=== PATIENT | male | born 1965 | race Two or more races ===

== ENCOUNTER 2017-12-04 16:01 | Emergency (ER) | payer MEDICAID ==
[~2017-12-04] VITALS: Ht 177.8 cm; Wt 90.7 kg
[~2017-12-04 16:01] MED LIST: HUMULIN N100 U/1 ML SC
[2017-12-04 16:17] VITALS: Ht 177.8 cm; Wt 90.7 kg
[2017-12-04 17:46] LABS: BASOPHIL % 0.3 % (0-2); PLATELET COUNT 174 x10^3mcL (130-400)
[2017-12-04 17:52] LABS: RED CELL DISTRIBUTION WIDTH 16.6 % (11.5-14.5)
[2017-12-04 18:04] LABS: BILIRUBIN TOTAL 0.3 mg/dL (0.20-1.00); CALCIUM 8.3 mg/dL (8.5-10.1); CARBON DIOXIDE 28.7 mmol/L (21-32); CREATININE SERUM 1.4 mg/dL (0.7-1.3); TOTAL PROTEIN, SERUM 7.3 g/dL (6.4-8.2)
[2017-12-04 18:05] LABS: ALBUMIN 2.7 g/dL (3.4-5.0)
[2017-12-04 18:06] LABS: POTASSIUM SERUM 2.8 mmol/L (3.5-5.1)
[2017-12-04 18:17] LABS: UA SPECIFIC GRAVITY >=1.030 (1.005-1.035); microscopic required? YES; urine erythrocyte 3+ (NEGATIVE)
[2017-12-04 21:40] VITALS: BP 122/71
== END 2017-12-04 21:41 | disposition home or self-care (01) ==
LOC: ED 16:01
PROVIDERS: Emergency Medicine
DX: S06.9X1A Unspecified intracranial injury with loss of consciousness of 30 minutes or less, initial encounter (principal); E16.2 Hypoglycemia, unspecified; E87.6 Hypokalemia; W05.0XXA Fall from non-moving wheelchair, initial encounter; Y93.89 Activity, other specified; Y92.89 Other specified places as the place of occurrence of the external cause; Y99.8 Other external cause status
CPT/HCPCS: 82962; J1956; J3480; J3490; J7040

== ENCOUNTER 2018-05-11 16:49 | Inpatient (IN) | payer OTHER ==
[~2018-05-11] VITALS: Ht 177.8 cm; Wt 90.1 kg
[2018-05-11 17:53] LABS: PLATELET COUNT 193 x10^3mcL (130-400)
[2018-05-11 17:57] LABS: RED CELL DISTRIBUTION WIDTH 17.3 % (11.5-14.5)
[2018-05-11 18:17] LABS: ALKALINE PHOSPHATASE 166 U/L (46-116); ALT/SGPT 29 U/L (16-63); AST/SGOT 21 U/L (15-37); BILIRUBIN TOTAL 0.5 mg/dL (0.20-1.00); CALCIUM 8.6 mg/dL (8.5-10.1); CARBON DIOXIDE 28.5 mmol/L (21-32); CHLORIDE SERUM 92 mmol/L (98-107); CREATININE SERUM 1.2 mg/dL (0.7-1.3); GFR1 > 60 mL/min; GLUCOSE SERUM 308 mg/dL (74-106); SODIUM SERUM 129 mmol/L (136-145); TOTAL PROTEIN, SERUM 8.2 g/dL (6.4-8.2)
[2018-05-11 18:38] LABS: ALBUMIN 1.9 g/dL (3.4-5.0); POTASSIUM SERUM 2.3 mmol/L (3.5-5.1)
[2018-05-11 18:40] LABS: BAND NEUTROPHIL 21 % (0-10); BASOPHIL 0 % (0-2); MONOCYTE 5 % (0-7); SEGMENTED NEUTROPHILS 66 % (37-75); rbc morphology (normal/abnorm) ABNORMAL (NORMAL)
[2018-05-11 18:41] LABS: PLATELET MORPHOLOGY PLATELETS NORMAL
[2018-05-11 19:11] LABS: UA SPECIFIC GRAVITY <=1.005 (1.005-1.035); microscopic required? YES; urine erythrocyte 1+ (NEGATIVE)
[2018-05-11] MEDS ORDERED: METFORMIN850 M1 PO (19:36)
[2018-05-11] MEDS ORDERED: NOVOLIN R100 U/ML (19:37)
[2018-05-11] MEDS ORDERED: HUMULIN R100 U/1 M1 (19:37)
[2018-05-11] MEDS ORDERED: HUMULIN N100 U/1 ML (19:37)
[2018-05-11 19:46] LABS: AMPHETAMINE QUAL UR NONE DETECTED (See below)
[2018-05-11 19:47] LABS: CHOLESTEROL 159 mg/dL (<200); LIPASE 81 IU/L (73-393); MAGNESIUM 2.3 mg/dL (1.8-2.4); PHOSPHOROUS 2.3 mg/dL (2.5-4.9)
[2018-05-11 19:49] LABS: AMYLASE 15 U/L (25-115); CHOLESTEROL/HDL RATIO 15.9; HDL CHOLESTEROL 10 mg/dL (40-60); TRIGLYCERIDES 542 mg/dL (<150)
[2018-05-11 19:53] LABS: T3 TOTAL 0.81 ng/mL
[2018-05-11 20:11] LABS: FREE T4 1.45 ng/dL (0.76-1.46); FREE THYROXINE INDEX 2.4 ug/dL (1.4-4.5); T4(THYROXINE) 6.7 ug/dL (4.7-13.3)
[2018-05-11 21:55] VITALS: BP 107/59
[2018-05-11 23:00] VITALS: BP 107/59
[2018-05-12 02:00] VITALS: BP 90/54
[2018-05-12 06:35] VITALS: BP 102/57
[2018-05-12 07:23] LABS: PLATELET COUNT 174 x10^3mcL (130-400)
[2018-05-12 07:51] LABS: RED CELL DISTRIBUTION WIDTH 17.4 % (11.5-14.5)
[2018-05-12 08:04] LABS: CALCIUM 7.9 mg/dL (8.5-10.1); CARBON DIOXIDE 28.8 mmol/L (21-32); CHLORIDE SERUM 99 mmol/L (98-107); GFR1 > 60 mL/min; GLUCOSE SERUM 160 mg/dL (74-106); SODIUM SERUM 135 mmol/L (136-145)
[2018-05-12 08:16] LABS: POTASSIUM SERUM 2.4 mmol/L (3.5-5.1)
[2018-05-12 09:22] VITALS: BP 105/53
[2018-05-12 11:30] LABS: BAND NEUTROPHIL 19 % (0-10); BASOPHIL 0 % (0-2); MONOCYTE 7 % (0-7); SEGMENTED NEUTROPHILS 64 % (37-75)
[2018-05-12 11:32] LABS: rbc morphology (normal/abnorm) ABNORMAL (NORMAL)
[2018-05-12 13:26] VITALS: BP 104/53
[2018-05-12 17:20] VITALS: BP 117/57
[2018-05-12 21:06] VITALS: BP 100/56
[2018-05-13 05:55] VITALS: BP 107/63
[2018-05-13 07:45] LABS: PLATELET COUNT 195 x10^3mcL (130-400)
[2018-05-13 07:57] LABS: RED CELL DISTRIBUTION WIDTH 17.5 % (11.5-14.5)
[2018-05-13 08:11] LABS: CHLORIDE SERUM 100 mmol/L (98-107); POTASSIUM SERUM 3.1 mmol/L (3.5-5.1); SODIUM SERUM 135 mmol/L (136-145)
[2018-05-13 08:23] LABS: CALCIUM 7.5 mg/dL (8.5-10.1); CARBON DIOXIDE 25.1 mmol/L (21-32); CREATININE SERUM 1.1 mg/dL (0.7-1.3); GFR1 > 60 mL/min; GLUCOSE SERUM 162 mg/dL (74-106); MAGNESIUM 1.6 mg/dL (1.8-2.4); PHOSPHOROUS 2.6 mg/dL (2.5-4.9)
[2018-05-13 10:00] VITALS: BP 103/55
[2018-05-13 11:53] LABS: BAND NEUTROPHIL 1 % (0-10); BASOPHIL 0 % (0-2); MONOCYTE 3 % (0-7); SEGMENTED NEUTROPHILS 91 % (37-75)
[2018-05-13 11:54] LABS: PLATELET MORPHOLOGY PLATELETS DECREASED; rbc morphology (normal/abnorm) ABNORMAL (NORMAL)
[2018-05-13 13:30] VITALS: BP 106/58
[2018-05-13 17:32] VITALS: BP 107/76
[2018-05-13 21:09] VITALS: BP 116/63
[2018-05-14 05:39] VITALS: BP 108/64
[2018-05-14 05:53] LABS: BASOPHIL % 0.1 % (0-2); PLATELET COUNT 229 x10^3mcL (130-400)
[2018-05-14 06:30] LABS: CALCIUM 7.6 mg/dL (8.5-10.1); CARBON DIOXIDE 23.8 mmol/L (21-32); CHLORIDE SERUM 99 mmol/L (98-107); CREATININE SERUM 1.1 mg/dL (0.7-1.3); GFR1 > 60 mL/min; GLUCOSE SERUM 157 mg/dL (74-106); MAGNESIUM 1.5 mg/dL (1.8-2.4); PHOSPHOROUS 2.6 mg/dL (2.5-4.9); POTASSIUM SERUM 3.3 mmol/L (3.5-5.1); SODIUM SERUM 132 mmol/L (136-145)
[2018-05-14 07:16] LABS: RED CELL DISTRIBUTION WIDTH 17.2 % (11.5-14.5)
[2018-05-14 08:23] VITALS: Ht 177.8 cm; Wt 90.1 kg
[2018-05-14 09:08] VITALS: BP 98/57
[2018-05-14 13:07] VITALS: BP 95/65
[2018-05-14 17:15] VITALS: BP 106/62
[2018-05-14 20:00] VITALS: BP 112/67
[2018-05-15] VITALS (12 sets, daily range): BP systolic 98–144; BP diastolic 57–99
[2018-05-15 06:37] LABS: BASOPHIL % 0.2 % (0-2); PLATELET COUNT 246 x10^3mcL (130-400)
[2018-05-15 06:47] LABS: RED CELL DISTRIBUTION WIDTH 17.1 % (11.5-14.5)
[2018-05-15 07:12] LABS: CALCIUM 7.4 mg/dL (8.5-10.1); CARBON DIOXIDE 24.5 mmol/L (21-32); CHLORIDE SERUM 103 mmol/L (98-107); GFR1 > 60 mL/min; GLUCOSE SERUM 217 mg/dL (74-106); MAGNESIUM 1.6 mg/dL (1.8-2.4); PHOSPHOROUS 2.2 mg/dL (2.5-4.9); SODIUM SERUM 135 mmol/L (136-145)
[2018-05-16 05:10] VITALS: BP 111/62
[2018-05-16 06:19] LABS: BASOPHIL % 0.3 % (0-2); PLATELET COUNT 289 x10^3mcL (130-400)
[2018-05-16 06:34] LABS: RED CELL DISTRIBUTION WIDTH 17.5 % (11.5-14.5)
[2018-05-16 06:53] LABS: CALCIUM 7.8 mg/dL (8.5-10.1); CHLORIDE SERUM 101 mmol/L (98-107); GFR1 > 60 mL/min; GLUCOSE SERUM 175 mg/dL (74-106); MAGNESIUM 1.7 mg/dL (1.8-2.4); PHOSPHOROUS 3.1 mg/dL (2.5-4.9); POTASSIUM SERUM 4.3 mmol/L (3.5-5.1); SODIUM SERUM 130 mmol/L (136-145)
[2018-05-16 09:44] VITALS: BP 155/75
[2018-05-16 14:30] VITALS: BP 106/56
[2018-05-16 17:19] VITALS: BP 127/66
[2018-05-16 21:07] VITALS: BP 110/63
[2018-05-17 05:41] VITALS: BP 110/63; BP 118/66
[2018-05-17 06:49] LABS: BASOPHIL % 0.4 % (0-2); PLATELET COUNT 289 x10^3mcL (130-400)
[2018-05-17 06:51] LABS: RED CELL DISTRIBUTION WIDTH 17.2 % (11.5-14.5)
[2018-05-17 06:57] LABS: CALCIUM 7.8 mg/dL (8.5-10.1); CARBON DIOXIDE 25.2 mmol/L (21-32); CHLORIDE SERUM 100 mmol/L (98-107); GFR1 > 60 mL/min; GLUCOSE SERUM 206 mg/dL (74-106); POTASSIUM SERUM 4.3 mmol/L (3.5-5.1); SODIUM SERUM 132 mmol/L (136-145)
[2018-05-17 10:21] VITALS: BP 90/54
[2018-05-17 14:01] VITALS: BP 136/81
[2018-05-17 17:48] VITALS: BP 128/68
[2018-05-17 20:55] VITALS: BP 100/55
[2018-05-18 05:14] VITALS: BP 111/67
[2018-05-18 07:10] LABS: CALCIUM 7.8 mg/dL (8.5-10.1); CARBON DIOXIDE 26.1 mmol/L (21-32); CHLORIDE SERUM 102 mmol/L (98-107); CREATININE SERUM 1.1 mg/dL (0.7-1.3); GFR1 > 60 mL/min; GLUCOSE SERUM 204 mg/dL (74-106); POTASSIUM SERUM 4.6 mmol/L (3.5-5.1); SODIUM SERUM 135 mmol/L (136-145)
[2018-05-18 07:42] LABS: BASOPHIL % 0.3 % (0-2); PLATELET COUNT 331 x10^3mcL (130-400)
[2018-05-18 07:55] LABS: RED CELL DISTRIBUTION WIDTH 17.6 % (11.5-14.5)
[2018-05-18 08:37] VITALS: BP 112/62
[2018-05-18 16:24] VITALS: BP 93/44
[2018-05-18 20:30] VITALS: BP 117/63
[2018-05-19 05:39] VITALS: BP 114/65
[2018-05-19 06:32] LABS: BASOPHIL % 0.4 % (0-2); PLATELET COUNT 339 x10^3mcL (130-400)
[2018-05-19 07:01] LABS: CALCIUM 8.1 mg/dL (8.5-10.1); CARBON DIOXIDE 27.1 mmol/L (21-32); CHLORIDE SERUM 101 mmol/L (98-107); CREATININE SERUM 1.1 mg/dL (0.7-1.3); GFR1 > 60 mL/min; GLUCOSE SERUM 241 mg/dL (74-106); POTASSIUM SERUM 4.1 mmol/L (3.5-5.1); SODIUM SERUM 132 mmol/L (136-145)
[2018-05-19 07:25] LABS: RED CELL DISTRIBUTION WIDTH 17.6 % (11.5-14.5)
[2018-05-19 09:23] VITALS: BP 115/70
[2018-05-19 12:53] VITALS: BP 104/66
[2018-05-19 16:24] VITALS: BP 134/71
[2018-05-19 20:35] VITALS: BP 100/55
[2018-05-20 06:06] VITALS: BP 121/64
[2018-05-20 06:26] LABS: BASOPHIL % 0.4 % (0-2); PLATELET COUNT 387 x10^3mcL (130-400)
[2018-05-20 06:57] LABS: CALCIUM 8.4 mg/dL (8.5-10.1); CHLORIDE SERUM 102 mmol/L (98-107); CREATININE SERUM 1.1 mg/dL (0.7-1.3); GFR1 > 60 mL/min; GLUCOSE SERUM 216 mg/dL (74-106); POTASSIUM SERUM 4.5 mmol/L (3.5-5.1); SODIUM SERUM 134 mmol/L (136-145)
[2018-05-20 08:20] VITALS: BP 100/76
[2018-05-20 12:49] VITALS: BP 119/76
[2018-05-20 16:32] VITALS: BP 127/78
[2018-05-20 21:07] VITALS: BP 137/73
[2018-05-21 05:18] VITALS: BP 121/68
[2018-05-21 08:56] VITALS: BP 112/57
[2018-05-21 13:07] VITALS: BP 91/59
[2018-05-21 17:21] VITALS: BP 119/72
[2018-05-21 21:55] VITALS: BP 114/68
[2018-05-22 05:32] VITALS: BP 131/69
[2018-05-22 06:07] LABS: BASOPHIL % 0.5 % (0-2); PLATELET COUNT 366 x10^3mcL (130-400)
[2018-05-22 06:20] LABS: CALCIUM 8.5 mg/dL (8.5-10.1); CARBON DIOXIDE 26.2 mmol/L (21-32); CHLORIDE SERUM 103 mmol/L (98-107); CREATININE SERUM 1.2 mg/dL (0.7-1.3); GFR1 > 60 mL/min; GLUCOSE SERUM 174 mg/dL (74-106); MAGNESIUM 1.8 mg/dL (1.8-2.4); PHOSPHOROUS 3.3 mg/dL (2.5-4.9); POTASSIUM SERUM 3.8 mmol/L (3.5-5.1); SODIUM SERUM 137 mmol/L (136-145)
[2018-05-22 06:52] LABS: RED CELL DISTRIBUTION WIDTH 17.7 % (11.5-14.5)
[2018-05-22 09:31] VITALS: BP 112/62
[2018-05-22 12:49] VITALS: BP 106/61
[2018-05-22 17:38] VITALS: BP 94/58
[2018-05-22 21:00] VITALS: BP 119/71
[2018-05-23 05:54] VITALS: BP 136/67
[2018-05-23 07:16] LABS: CARBON DIOXIDE 26.7 mmol/L (21-32); CHLORIDE SERUM 101 mmol/L (98-107); CREATININE SERUM 1.2 mg/dL (0.7-1.3); GFR1 > 60 mL/min; GLUCOSE SERUM 236 mg/dL (74-106); MAGNESIUM 1.8 mg/dL (1.8-2.4); PHOSPHOROUS 3.7 mg/dL (2.5-4.9); POTASSIUM SERUM 4.1 mmol/L (3.5-5.1); SODIUM SERUM 135 mmol/L (136-145)
[2018-05-23 07:49] LABS: BASOPHIL % 0.2 % (0-2); PLATELET COUNT 391 x10^3mcL (130-400)
[2018-05-23 07:52] LABS: RED CELL DISTRIBUTION WIDTH 16.5 % (11.5-14.5)
[2018-05-23 10:23] VITALS: BP 113/63
[2018-05-23 13:21] VITALS: BP 110/59
[2018-05-23 16:30] VITALS: BP 114/67
[2018-05-23 21:53] VITALS: BP 128/76
[2018-05-24 05:23] VITALS: BP 121/69
[2018-05-24 06:10] LABS: CALCIUM 8.5 mg/dL (8.5-10.1); CARBON DIOXIDE 26.8 mmol/L (21-32); CHLORIDE SERUM 101 mmol/L (98-107); CREATININE SERUM 1.1 mg/dL (0.7-1.3); GFR1 > 60 mL/min; GLUCOSE SERUM 184 mg/dL (74-106); SODIUM SERUM 134 mmol/L (136-145)
[2018-05-24 06:44] LABS: BASOPHIL % 0.5 % (0-2); PLATELET COUNT 367 x10^3mcL (130-400); RED CELL DISTRIBUTION WIDTH 17.2 % (11.5-14.5)
[2018-05-24 10:12] VITALS: BP 117/66
[2018-05-24 13:37] VITALS: BP 119/72
[2018-05-24 16:13] VITALS: BP 139/75
[2018-05-24 21:17] VITALS: BP 117/70
[2018-05-25 06:33] VITALS: BP 114/71
[2018-05-25 07:12] LABS: BASOPHIL % 0.8 % (0-2); PLATELET COUNT 372 x10^3mcL (130-400)
[2018-05-25 07:23] LABS: RED CELL DISTRIBUTION WIDTH 17.4 % (11.5-14.5)
[2018-05-25 07:24] LABS: CALCIUM 8.9 mg/dL (8.5-10.1); CARBON DIOXIDE 23.3 mmol/L (21-32); CHLORIDE SERUM 102 mmol/L (98-107); CREATININE SERUM 1.1 mg/dL (0.7-1.3); GFR1 > 60 mL/min; GLUCOSE SERUM 247 mg/dL (74-106); POTASSIUM SERUM 3.9 mmol/L (3.5-5.1); SODIUM SERUM 134 mmol/L (136-145)
[2018-05-25 09:17] VITALS: BP 96/55
[2018-05-25] MEDS ORDERED: LOVENOX100 MG/M1 IJ (14:34)
[2018-05-25] MEDS ORDERED: ZOS3PM IV (14:35)
[2018-05-25] MEDS ORDERED: ABILIFY5 M1 PO (14:35)
[2018-05-25] MEDS ORDERED: LIPI10 PO (14:36)
[2018-05-25] MEDS ORDERED: GOOD SENSE ASPI81 M3 PO (14:36)
[2018-05-25] MEDS ORDERED: VANCOMYCIN HCL N1 GM IV (14:40)
[2018-05-25 14:43] VITALS: BP 96/55
== END 2018-05-25 16:45 | DRG 710 ==
LOC: ED 16:49 → DU 19:23 → MU 05-24 14:27
PROVIDERS: Emergency Medicine; General Practice; Internal Medicine; Surgery
PROC: 0JBR0ZZ Excision of Left Foot Subcutaneous Tissue and Fascia, Open Approach (ICD-10-PCS; principal; 2018-05-12)
PROC: B41G1ZZ Fluoroscopy of Left Lower Extremity Arteries using Low Osmolar Contrast (ICD-10-PCS; 2018-05-15)
PROC: B4101ZZ Fluoroscopy of Abdominal Aorta using Low Osmolar Contrast (ICD-10-PCS; 2018-05-15 13:00)
PROC: 0QBM0ZZ Excision of Left Tarsal, Open Approach (ICD-10-PCS; 2018-05-18)
DX: A41.9 Sepsis, unspecified organism (principal); N17.0 Acute kidney failure with tubular necrosis; G93.41 Metabolic encephalopathy; E43 Unspecified severe protein-calorie malnutrition; A48.0 Gas gangrene; E83.39 Other disorders of phosphorus metabolism; L03.116 Cellulitis of left lower limb; E11.42 Type 2 diabetes mellitus with diabetic polyneuropathy; E11.52 Type 2 diabetes mellitus with diabetic peripheral angiopathy with gangrene; I82.412 Acute embolism and thrombosis of left femoral vein; E11.621 Type 2 diabetes mellitus with foot ulcer; F17.210 Nicotine dependence, cigarettes, uncomplicated; E11.65 Type 2 diabetes mellitus with hyperglycemia; E87.1 Hypo-osmolality and hyponatremia; E87.6 Hypokalemia; L97.421 Non-pressure chronic ulcer of left heel and midfoot limited to breakdown of skin; Z60.2 Problems related to living alone; E78.5 Hyperlipidemia, unspecified; N39.0 Urinary tract infection, site not specified; E11.610 Type 2 diabetes mellitus with diabetic neuropathic arthropathy; M76.62 Achilles tendinitis, left leg; D63.8 Anemia in other chronic diseases classified elsewhere; B96.20 Unspecified Escherichia coli [E. coli] as the cause of diseases classified elsewhere; B95.2 Enterococcus as the cause of diseases classified elsewhere; B96.4 Proteus (mirabilis) (morganii) as the cause of diseases classified elsewhere; Z89.422 Acquired absence of other left toe(s); Z68.25 Body mass index [BMI] 25.0-25.9, adult; Z89.511 Acquired absence of right leg below knee; Z79.84 Long term (current) use of oral hypoglycemic drugs; Z72.89 Other problems related to lifestyle; Z56.0 Unemployment, unspecified; Z86.73 Personal history of transient ischemic attack (TIA), and cerebral infarction without residual deficits; Z79.01 Long term (current) use of anticoagulants; Z59.0 Homelessness
CPT/HCPCS: 82962; 83880; 84439; 97110-GP; 97112-GP; 97116-GP; 97530-GP; A9577; A9579; C1760; C1769; C1887; C1894; J1200; J1650; J1815; J1956; J2001; J2250; J2310; J2543; J3010; J3370; J3475; J3480; J3490; J7030; J7050; Q0092; Q9967

== ENCOUNTER 2018-08-01 13:31 | Inpatient (IN) | payer OTHER ==
[~2018-08-01] VITALS: Ht 177.8 cm; Wt 86.0 kg
[~2018-08-01 13:31] MED LIST changes: +ABILIFY5 M1 PO; +GOOD SENSE ASPI81 M3 PO; +HUMULIN N100 U/1 ML; +HUMULIN R100 U/1 M1; +LIPI10 PO; +LOVENOX100 MG/M1 IJ; +METFORMIN850 M1 PO; +NOVOLIN R100 U/ML; +VANCOMYCIN HCL N1 GM IV; +ZOS3PM IV
[2018-08-01 14:26] LABS: CALCIUM 9.1 mg/dL (8.5-10.1); CARBON DIOXIDE 23.2 mmol/L (21-32); CHLORIDE SERUM 99 mmol/L (98-107); CREATININE SERUM 1.3 mg/dL (0.7-1.3); GFR1 > 60 mL/min; GLUCOSE SERUM 304 mg/dL (74-106); SODIUM SERUM 133 mmol/L (136-145)
[2018-08-01 14:27] LABS: BASOPHIL % 0.3 % (0-2); PLATELET COUNT 510 x10^3mcL (130-400); RED CELL DISTRIBUTION WIDTH 16.7 % (11.5-14.5)
[2018-08-01 14:33] LABS: ALKALINE PHOSPHATASE 123 U/L (46-116); ALT/SGPT 45 U/L (16-63); AST/SGOT 30 U/L (15-37); BILIRUBIN TOTAL 0.1 mg/dL (0.20-1.00)
[2018-08-01 14:36] LABS: ALBUMIN 2.3 g/dL (3.4-5.0); TOTAL PROTEIN, SERUM 9.5 g/dL (6.4-8.2)
[2018-08-01] MEDS ORDERED: MULTI-VITAMINS1 TAB PO (16:12)
[2018-08-01] MEDS ORDERED: NORCO1 TA2 PO (16:12)
[2018-08-01] MEDS ORDERED: KLOR-CON M2020 MEQ PO (16:13)
[2018-08-01] MEDS ORDERED: [UNRECOGNIZED DRUG - CODE] (16:13)
[2018-08-01 17:38] VITALS: BP 122/74
[2018-08-01 17:51] VITALS: Ht 177.8 cm; Wt 86.0 kg
[2018-08-01 17:53] LABS: MAGNESIUM 1.5 mg/dL (1.8-2.4); PHOSPHOROUS 4.2 mg/dL (2.5-4.9)
[2018-08-01 17:54] LABS: CHOLESTEROL/HDL RATIO 6.9
[2018-08-01 18:16] LABS: FREE T4 1.02 ng/dL (0.76-1.46); T4(THYROXINE) 5.2 ug/dL (4.7-13.3)
[2018-08-01 18:47] LABS: T3 TOTAL 0.65 ng/mL
[2018-08-01 19:30] LABS: IRON 15 ug/dL (65-170); TOTAL IRON BINDING CAPACITY 190 ug/dL (250-450)
[2018-08-01 21:04] VITALS: BP 127/71
[2018-08-02 06:00] VITALS: BP 149/89
[2018-08-02 07:04] LABS: CALCIUM 8.3 mg/dL (8.5-10.1); CARBON DIOXIDE 23.7 mmol/L (21-32); CHLORIDE SERUM 102 mmol/L (98-107); GFR1 > 60 mL/min; GLUCOSE SERUM 132 mg/dL (74-106); POTASSIUM SERUM 3.8 mmol/L (3.5-5.1); SODIUM SERUM 135 mmol/L (136-145)
[2018-08-02 07:34] LABS: BASOPHIL % 0.2 % (0-2); PLATELET COUNT 490 x10^3mcL (130-400); RED CELL DISTRIBUTION WIDTH 15.7 % (11.5-14.5)
[2018-08-02 08:23] VITALS: BP 109/60
[2018-08-02 08:25] LABS: UA SPECIFIC GRAVITY 1.025 (1.005-1.035); microscopic required? YES; urine erythrocyte NEGATIVE (NEGATIVE)
[2018-08-02 08:46] LABS: AMPHETAMINE QUAL UR NONE DETECTED (See below)
[2018-08-02 12:05] VITALS: BP 101/68
[2018-08-02 18:16] VITALS: BP 97/77
[2018-08-02 21:05] VITALS: BP 145/92
[2018-08-03 05:56] LABS: BASOPHIL % 0.3 % (0-2)
[2018-08-03 06:07] VITALS: BP 139/63
[2018-08-03 06:25] LABS: PLATELET COUNT 420 x10^3mcL (130-400); RED CELL DISTRIBUTION WIDTH 16.4 % (11.5-14.5)
[2018-08-03 06:27] LABS: CALCIUM 8.7 mg/dL (8.5-10.1); CARBON DIOXIDE 24.9 mmol/L (21-32); CHLORIDE SERUM 106 mmol/L (98-107); CREATININE SERUM 0.9 mg/dL (0.7-1.3); GFR1 > 60 mL/min; GLUCOSE SERUM 108 mg/dL (74-106); SODIUM SERUM 138 mmol/L (136-145)
[2018-08-03 08:16] VITALS: BP 95/65
[2018-08-03 11:48] VITALS: BP 136/72
[2018-08-03 16:23] VITALS: BP 94/59
[2018-08-03 20:58] VITALS: BP 109/63
[2018-08-04 05:46] VITALS: BP 115/64
[2018-08-04 08:06] LABS: BASOPHIL % 0.4 % (0-2)
[2018-08-04 08:07] LABS: PLATELET COUNT 437 x10^3mcL (130-400); RED CELL DISTRIBUTION WIDTH 17.3 % (11.5-14.5)
[2018-08-04 08:08] LABS: CALCIUM 8.1 mg/dL (8.5-10.1); CARBON DIOXIDE 23.1 mmol/L (21-32); CHLORIDE SERUM 106 mmol/L (98-107); CREATININE SERUM 0.9 mg/dL (0.7-1.3); GFR1 > 60 mL/min; GLUCOSE SERUM 206 mg/dL (74-106); MAGNESIUM 1.7 mg/dL (1.8-2.4); POTASSIUM SERUM 4.2 mmol/L (3.5-5.1); SODIUM SERUM 138 mmol/L (136-145)
[2018-08-04 09:04] VITALS: BP 94/54
[2018-08-04 13:48] VITALS: BP 130/71
[2018-08-04 17:00] VITALS: BP 114/80
[2018-08-04 21:04] VITALS: BP 114/74
[2018-08-05 05:33] VITALS: BP 133/61
[2018-08-05 07:41] LABS: CALCIUM 8.9 mg/dL (8.5-10.1); CARBON DIOXIDE 29.3 mmol/L (21-32); CHLORIDE SERUM 104 mmol/L (98-107); GFR1 > 60 mL/min; GLUCOSE SERUM 180 mg/dL (74-106); POTASSIUM SERUM 3.4 mmol/L (3.5-5.1); SODIUM SERUM 139 mmol/L (136-145)
[2018-08-05 07:44] LABS: BASOPHIL % 0.3 % (0-2); PLATELET COUNT 477 x10^3mcL (130-400); RED CELL DISTRIBUTION WIDTH 17.1 % (11.5-14.5)
[2018-08-05 08:51] VITALS: BP 119/65
[2018-08-05 13:05] VITALS: BP 114/69
[2018-08-05 17:03] VITALS: BP 129/65
[2018-08-05 20:51] VITALS: BP 125/74
[2018-08-06 05:25] VITALS: BP 118/67
[2018-08-06 06:34] LABS: CALCIUM 8.7 mg/dL (8.5-10.1); CARBON DIOXIDE 29.5 mmol/L (21-32); CHLORIDE SERUM 103 mmol/L (98-107); CREATININE SERUM 0.9 mg/dL (0.7-1.3); GFR1 > 60 mL/min; GLUCOSE SERUM 190 mg/dL (74-106); SODIUM SERUM 139 mmol/L (136-145)
[2018-08-06 06:56] LABS: BASOPHIL % 0.2 % (0-2); PLATELET COUNT 424 x10^3mcL (130-400); RED CELL DISTRIBUTION WIDTH 16.7 % (11.5-14.5)
[2018-08-06 08:40] VITALS: BP 114/69
[2018-08-06 14:05] VITALS: BP 95/59
[2018-08-06 15:28] VITALS: BP 94/60
[2018-08-06 17:00] VITALS: BP 115/49
[2018-08-06 21:39] VITALS: BP 90/55
[2018-08-07 01:04] VITALS: BP 98/58
[2018-08-07 06:42] LABS: BASOPHIL % 0.4 % (0-2); PLATELET COUNT 357 x10^3mcL (130-400)
[2018-08-07 06:44] VITALS: BP 96/58
[2018-08-07 07:07] LABS: ALKALINE PHOSPHATASE 69 U/L (46-116); ALT/SGPT 21 U/L (16-63); AST/SGOT 13 U/L (15-37); BILIRUBIN TOTAL 0.17 mg/dL (0.20-1.00); CALCIUM 8.6 mg/dL (8.5-10.1); CARBON DIOXIDE 26.7 mmol/L (21-32); CHLORIDE SERUM 105 mmol/L (98-107); GFR1 > 60 mL/min; GLUCOSE SERUM 243 mg/dL (74-106); MAGNESIUM 1.9 mg/dL (1.8-2.4); POTASSIUM SERUM 3.8 mmol/L (3.5-5.1); SODIUM SERUM 138 mmol/L (136-145); TOTAL PROTEIN, SERUM 7.3 g/dL (6.4-8.2)
[2018-08-07 08:01] LABS: RED CELL DISTRIBUTION WIDTH 16.8 % (11.5-14.5)
[2018-08-07 09:22] VITALS: BP 93/50
[2018-08-07 10:57] LABS: PLATELET COUNT 304 x10^3mcL (130-400)
[2018-08-07 11:10] LABS: RED CELL DISTRIBUTION WIDTH 17.6 % (11.5-14.5)
[2018-08-07 11:15] LABS: rbc morphology (normal/abnorm) NORMAL (NORMAL)
[2018-08-07 12:40] VITALS: BP 111/60
[2018-08-07 12:51] LABS: BAND NEUTROPHIL 0 % (0-10); BASOPHIL 0 % (0-2); MONOCYTE 8 % (0-7); SEGMENTED NEUTROPHILS 76 % (37-75)
[2018-08-07 12:52] LABS: PLATELET MORPHOLOGY N; rbc morphology (normal/abnorm) ABNORMAL (NORMAL)
[2018-08-07 17:03] VITALS: BP 123/69
[2018-08-07 21:18] VITALS: BP 111/61
[2018-08-08 05:43] VITALS: BP 102/59
[2018-08-08 07:04] LABS: BASOPHIL % 0.4 % (0-2); PLATELET COUNT 303 x10^3mcL (130-400)
[2018-08-08 07:15] LABS: CALCIUM 8.1 mg/dL (8.5-10.1); CARBON DIOXIDE 28.2 mmol/L (21-32); CHLORIDE SERUM 105 mmol/L (98-107); GFR1 > 60 mL/min; GLUCOSE SERUM 153 mg/dL (74-106); POTASSIUM SERUM 3.8 mmol/L (3.5-5.1); SODIUM SERUM 140 mmol/L (136-145)
[2018-08-08 08:09] LABS: RED CELL DISTRIBUTION WIDTH 17.8 % (11.5-14.5)
[2018-08-08 09:59] VITALS: BP 98/47
[2018-08-08] MEDS ORDERED: AMERINET CHOICE1 PD3 IV (10:21)
[2018-08-08] MEDS ORDERED: [UNRECOGNIZED DRUG - CODE] IV (10:21)
[2018-08-08 12:11] LABS: rbc morphology (normal/abnorm) ABNORMAL (NORMAL)
[2018-08-08 12:55] VITALS: BP 118/49
[2018-08-08 13:39] VITALS: BP 110/45; BP 118/49
[2018-08-08 17:24] VITALS: BP 117/57
[2018-08-08 21:15] VITALS: BP 110/61
[2018-08-09 05:39] VITALS: BP 120/62
[2018-08-09] MEDS ORDERED: FERROUS SULFAT325 M2 PO (09:44)
[2018-08-09] MEDS ORDERED: VITAMIN-D1000 IU PO (09:44)
[2018-08-09 09:46] VITALS: BP 94/59
[2018-08-09 13:04] VITALS: BP 110/45
[2018-08-09 18:30] VITALS: BP 104/62
[2018-08-09 21:01] VITALS: BP 111/66
[2018-08-10 05:27] VITALS: BP 110/66
[2018-08-10 08:42] VITALS: BP 118/58
[2018-08-10 12:24] VITALS: BP 108/65
[2018-08-10 15:15] LABS: BASOPHIL % 0.4 % (0-2); PLATELET COUNT 303 x10^3mcL (130-400)
[2018-08-10 16:07] LABS: rbc morphology (normal/abnorm) ABNORMAL (NORMAL)
[2018-08-10 16:09] LABS: ovalocyte/elliptocyte 1+; tear drop cell (dacryocyte) 1+
[2018-08-10 16:15] VITALS: BP 117/62
[2018-08-10 21:35] VITALS: BP 135/63
[2018-08-11 06:09] VITALS: BP 111/65
[2018-08-11 07:34] LABS: BASOPHIL % 0.6 % (0-2); PLATELET COUNT 280 x10^3mcL (130-400)
[2018-08-11 07:53] LABS: RED CELL DISTRIBUTION WIDTH 17.9 % (11.5-14.5)
[2018-08-11 07:59] LABS: CALCIUM 9.1 mg/dL (8.5-10.1); CARBON DIOXIDE 29.4 mmol/L (21-32); CHLORIDE SERUM 105 mmol/L (98-107); GFR1 > 60 mL/min; GLUCOSE SERUM 180 mg/dL (74-106); MAGNESIUM 2.2 mg/dL (1.8-2.4); PHOSPHOROUS 3.1 mg/dL (2.5-4.9); POTASSIUM SERUM 4.4 mmol/L (3.5-5.1); SODIUM SERUM 140 mmol/L (136-145)
[2018-08-11 08:05] VITALS: BP 100/62
[2018-08-11 12:19] VITALS: BP 106/58
[2018-08-11 14:31] LABS: rbc morphology (normal/abnorm) ABNORMAL (NORMAL)
[2018-08-11 16:06] VITALS: BP 107/62
[2018-08-11 21:48] VITALS: BP 97/61
[2018-08-12 04:41] VITALS: BP 124/73
[2018-08-12 06:48] LABS: CALCIUM 8.9 mg/dL (8.5-10.1); CARBON DIOXIDE 28.8 mmol/L (21-32); CHLORIDE SERUM 104 mmol/L (98-107); GFR1 > 60 mL/min; GLUCOSE SERUM 125 mg/dL (74-106); POTASSIUM SERUM 4.4 mmol/L (3.5-5.1); SODIUM SERUM 140 mmol/L (136-145)
[2018-08-12 07:11] LABS: BASOPHIL % 0.4 % (0-2); PLATELET COUNT 280 x10^3mcL (130-400)
[2018-08-12 07:44] LABS: RED CELL DISTRIBUTION WIDTH 18.5 % (11.5-14.5)
[2018-08-12 09:24] VITALS: BP 95/56
[2018-08-12 13:45] VITALS: BP 98/63
[2018-08-12 17:59] VITALS: BP 97/64
[2018-08-12 21:13] VITALS: BP 113/62
[2018-08-13 04:33] VITALS: BP 103/56
[2018-08-13 06:43] LABS: CALCIUM 8.7 mg/dL (8.5-10.1); CARBON DIOXIDE 28.7 mmol/L (21-32); CHLORIDE SERUM 102 mmol/L (98-107); CREATININE SERUM 1.1 mg/dL (0.7-1.3); GFR1 > 60 mL/min; GLUCOSE SERUM 199 mg/dL (74-106); POTASSIUM SERUM 4.3 mmol/L (3.5-5.1); SODIUM SERUM 136 mmol/L (136-145)
[2018-08-13 07:29] LABS: BASOPHIL % 0.5 % (0-2); PLATELET COUNT 272 x10^3mcL (130-400)
[2018-08-13 07:39] LABS: RED CELL DISTRIBUTION WIDTH 19.4 % (11.5-14.5)
[2018-08-13 09:00] VITALS: BP 97/64
[2018-08-13 11:46] LABS: rbc morphology (normal/abnorm) ABNORMAL (NORMAL)
[2018-08-13 12:30] VITALS: BP 98/63
[2018-08-13 18:35] VITALS: BP 91/64
[2018-08-13 21:17] VITALS: BP 95/61
[2018-08-14 05:40] VITALS: BP 101/63
[2018-08-14 06:24] LABS: BASOPHIL % 0.3 % (0-2); PLATELET COUNT 276 x10^3mcL (130-400)
[2018-08-14 06:34] LABS: CALCIUM 8.8 mg/dL (8.5-10.1); CARBON DIOXIDE 27.9 mmol/L (21-32); CHLORIDE SERUM 101 mmol/L (98-107); CREATININE SERUM 1.1 mg/dL (0.7-1.3); GFR1 > 60 mL/min; GLUCOSE SERUM 194 mg/dL (74-106); POTASSIUM SERUM 4.3 mmol/L (3.5-5.1); SODIUM SERUM 136 mmol/L (136-145)
[2018-08-14 08:19] LABS: RED CELL DISTRIBUTION WIDTH 20.6 % (11.5-14.5)
[2018-08-14 09:47] VITALS: BP 100/63
[2018-08-14 14:03] LABS: rbc morphology (normal/abnorm) ABNORMAL (NORMAL)
[2018-08-14 17:12] VITALS: BP 96/49
[2018-08-14 21:45] VITALS: BP 106/64
[2018-08-15 05:51] VITALS: BP 101/64
[2018-08-15 06:49] LABS: BASOPHIL % 0.5 % (0-2); PLATELET COUNT 318 x10^3mcL (130-400)
[2018-08-15 07:01] LABS: CARBON DIOXIDE 28.1 mmol/L (21-32); CHLORIDE SERUM 103 mmol/L (98-107); GFR1 > 60 mL/min; GLUCOSE SERUM 132 mg/dL (74-106); MAGNESIUM 2.1 mg/dL (1.8-2.4); POTASSIUM SERUM 4.2 mmol/L (3.5-5.1); SODIUM SERUM 140 mmol/L (136-145)
[2018-08-15 07:02] LABS: RED CELL DISTRIBUTION WIDTH 19.5 % (11.5-14.5)
[2018-08-15 08:49] VITALS: BP 102/61
[2018-08-15 16:23] VITALS: BP 97/53
[2018-08-15 21:35] VITALS: BP 108/69
[2018-08-16 05:50] VITALS: BP 105/61
[2018-08-16 06:37] LABS: CALCIUM 8.8 mg/dL (8.5-10.1); CARBON DIOXIDE 27.6 mmol/L (21-32); CHLORIDE SERUM 104 mmol/L (98-107); GFR1 > 60 mL/min; GLUCOSE SERUM 209 mg/dL (74-106); POTASSIUM SERUM 4.5 mmol/L (3.5-5.1); SODIUM SERUM 138 mmol/L (136-145)
[2018-08-16 08:04] LABS: BASOPHIL % 0.4 % (0-2); PLATELET COUNT 272 x10^3mcL (130-400)
[2018-08-16 08:46] LABS: RED CELL DISTRIBUTION WIDTH 25.4 % (11.5-14.5)
[2018-08-16 09:04] VITALS: BP 103/44
[2018-08-16 11:25] LABS: rbc morphology (normal/abnorm) ABNORMAL (NORMAL); tear drop cell (dacryocyte) 1+
[2018-08-16 17:27] VITALS: BP 97/51
[2018-08-16 20:53] VITALS: BP 108/51
[2018-08-17 05:55] VITALS: BP 106/61
[2018-08-17 09:53] VITALS: BP 103/55
[2018-08-17 17:01] VITALS: BP 110/57
[2018-08-17 21:59] VITALS: BP 104/57
[2018-08-18 05:41] VITALS: BP 105/64
[2018-08-18 09:25] VITALS: BP 101/59
[2018-08-18 17:42] VITALS: BP 100/58
[2018-08-18 21:20] VITALS: BP 115/66
[2018-08-19 06:03] VITALS: BP 98/62
[2018-08-19 07:40] LABS: CALCIUM 8.7 mg/dL (8.5-10.1); CHLORIDE SERUM 104 mmol/L (98-107); CREATININE SERUM 0.9 mg/dL (0.7-1.3); GFR1 > 60 mL/min; GLUCOSE SERUM 170 mg/dL (74-106); POTASSIUM SERUM 4.7 mmol/L (3.5-5.1); SODIUM SERUM 140 mmol/L (136-145)
[2018-08-19 08:54] LABS: BASOPHIL % 0.6 % (0-2); PLATELET COUNT 218 x10^3mcL (130-400)
[2018-08-19 08:56] LABS: RED CELL DISTRIBUTION WIDTH 25.4 % (11.5-14.5)
[2018-08-19 09:42] VITALS: BP 101/64
[2018-08-19 17:47] VITALS: BP 102/62
[2018-08-19 21:15] VITALS: BP 110/63
[2018-08-20 05:29] VITALS: BP 101/63
[2018-08-20 09:00] VITALS: BP 100/62
[2018-08-20 17:15] VITALS: BP 107/64
[2018-08-20 20:57] VITALS: BP 109/65
[2018-08-21 06:07] VITALS: BP 105/64
[2018-08-21 10:14] VITALS: BP 110/68
[2018-08-21 16:59] VITALS: BP 110/68
[2018-08-21 18:25] VITALS: BP 111/67
[2018-08-21 21:31] VITALS: BP 97/61
== END 2018-08-21 21:51 | DRG 710 ==
LOC: ED 13:31 → DU 15:37 → MU 15:37 → DU 16:52 → MU 08-13 11:36
PROVIDERS: Emergency Medicine; General Practice; Internal Medicine; Surgery; ADMIT Family Medicine
PROC: 0Y6J0Z1 Detachment at Left Lower Leg, High, Open Approach (ICD-10-PCS; principal; 2018-08-06 11:00)
DX: A41.9 Sepsis, unspecified organism (principal); N17.0 Acute kidney failure with tubular necrosis; M72.6 Necrotizing fasciitis; E43 Unspecified severe protein-calorie malnutrition; A48.0 Gas gangrene; E11.52 Type 2 diabetes mellitus with diabetic peripheral angiopathy with gangrene; L89.893 Pressure ulcer of other site, stage 3; E83.42 Hypomagnesemia; L03.116 Cellulitis of left lower limb; D50.9 Iron deficiency anemia, unspecified; F17.210 Nicotine dependence, cigarettes, uncomplicated; E11.621 Type 2 diabetes mellitus with foot ulcer; E11.65 Type 2 diabetes mellitus with hyperglycemia; E11.69 Type 2 diabetes mellitus with other specified complication; M86.8X7 Other osteomyelitis, ankle and foot; E87.1 Hypo-osmolality and hyponatremia; E78.5 Hyperlipidemia, unspecified; Z59.0 Homelessness; Z99.3 Dependence on wheelchair; Z79.82 Long term (current) use of aspirin; Z89.511 Acquired absence of right leg below knee; Z91.19 Patient's noncompliance with other medical treatment and regimen; Z86.73 Personal history of transient ischemic attack (TIA), and cerebral infarction without residual deficits; Z79.4 Long term (current) use of insulin; Z82.49 Family history of ischemic heart disease and other diseases of the circulatory system; Z68.24 Body mass index [BMI] 24.0-24.9, adult; Z91.14 Patient's other noncompliance with medication regimen
CPT/HCPCS: 82962; 84439; 97110-GP; 97116-GP; 97530-GP; 99406; J0696; J1170; J1644; J1650; J1815; J1885; J2020; J2405; J2543; J2704; J2916; J3010; J3370; J3475; J7030; J7042; J7050; Q0092

== ENCOUNTER 2018-12-01 10:44 | Emergency (ER) | payer OTHER ==
[~2018-12-01] VITALS: Ht 180.3 cm; Wt 81.6 kg
[~2018-12-01 10:44] MED LIST changes: +AMERINET CHOICE1 PD3 IV; +FERROUS SULFAT325 M2 PO; +KLOR-CON M2020 MEQ PO; +MULTI-VITAMINS1 TAB PO; +NORCO1 TA2 PO; +VITAMIN-D1000 IU PO; +[UNRECOGNIZED DRUG - CODE]; +[UNRECOGNIZED DRUG - CODE] IV
[2018-12-01 10:56] VITALS: Ht 180.3 cm; Wt 81.6 kg
[2018-12-01 11:23] LABS: CALCIUM 9.3 mg/dL (8.5-10.1); CARBON DIOXIDE 22.6 mmol/L (21-32); CREATININE SERUM 1.4 mg/dL (0.7-1.3); POTASSIUM SERUM 3.9 mmol/L (3.5-5.1)
[2018-12-01 11:30] LABS: BASOPHIL % 0.2 % (0-2); PLATELET COUNT 193 x10^3mcL (130-400)
[2018-12-01 11:32] LABS: RED CELL DISTRIBUTION WIDTH 16.3 % (11.5-14.5)
[2018-12-01 12:42] VITALS: BP 120/70
== END 2018-12-01 12:35 | disposition other institution (70) ==
LOC: ED 10:44
PROVIDERS: Emergency Medicine
DX: Z02.89 Encounter for other administrative examinations (principal)
CPT/HCPCS: J1815

== ENCOUNTER 2018-12-01 10:44 | Emergency (ER) | payer OTHER | END 2018-12-01 12:35 | disposition other institution (70) | LOC: ED 10:44 | DX: Z02.89 Encounter for other administrative examinations (principal) ==